=== PATIENT | female | born 1960 | race Caucasian/White ===

== ENCOUNTER → 2017-03-21 | Day surgery (SDC) | payer OTHER ==
[~2017-03-21] MED LIST: ADVIL200 M3 PO; HYDROCODONE-AP1 EAC6 PO
--- NOTE | 2017-03-21 13:01 | H ---
[address] [address] HISTORY AND PHYSICAL Name: JILLIAN BERNABE Room: [facility]#: [id number] Admission: 03/21/17 Attend Phys: Ashlie Go MD Discharge: Date of : 60 Report #: [id number] THIS REPORT FOR: //name// CC: FAM unknown Ashlie Go DATE OF SERVICE: 03/21/2017 ADMITTING DIAGNOSIS: Left inguinal hernia. HISTORY OF PRESENT ILLNESS: The patient is a 57-year-old white female who presented to my office after a work-related injury in mid January, resulted in left inguinal pain and swelling. She was evaluated at [facility] and found to have a left inguinal hernia after physical exam and CT scan confirmed it. She is now being referred for surgical treatment. ALLERGIES: She has no known medication allergies. She reports no drug allergies. She has no known medical history. PAST SURGICAL HISTORY: Includes a bunionectomy in 2010 and a section in 1997. SOCIAL HISTORY: She does not smoke or drink or use illegal drugs. PHYSICAL EXAMINATION: GENERAL: She is a moderately thin, well-developed female, in no acute distress. HEAD, EYES, EARS, NOSE AND THROAT: Unremarkable. NECK: Supple. LUNGS: Clear. HEART: Regular rate and rhythm without murmur. ABDOMEN: Soft. She has a healed Pfannenstiel incision and in the left inguinal crease on Valsalva or coughing, an inguinal hernia could be appreciated, which was tender, but reducible, not on the right. EXTREMITIES: No varicosities or swelling or pitting edema. IMPRESSION AND PLAN: Left inguinal hernia. I have outlined open inguinal hernia repair with placement of mesh. I have outlined the risks and benefits and answered her questions. She understands and wishes to proceed with surgical treatment. <ELECTRONICALLY SIGNED> By: Ashlie Go MD 03/21/17 1301 1558 [id number] Go MD /nt
[2017-03-21 13:38] LABS: HEMATOCRIT 42.1 % (37.0-47.0); HEMOGLOBIN 14.3 gm/dL (12.0-15.0); MCH 30.9 pg (26.0-34.0); MCHC 33.9 g/dL (28.0-37.0); MPV 8.7 fl. (7.2-11.1); RBC 4.62 mil/uL (4.20-5.00); RDW-CV 12.5 % (10.5-14.5); WBC 6.3 thou/uL (4.0-11.0)
--- NOTE | 2017-03-21 15:30 | EKG ---
[place] [address] ELECTROCARDIOGRAM REPORT Name: JILLIAN BERNABE Room: [facility]#: [id number] Admission: 03/21/17 Attend Phys: Ashlie Go MD Discharge: Date of : 60 Report #: [id number] THIS REPORT FOR: //name// [facility] Test Date: 2017-03-21 Test Time: 13:25:43 Pat Name: JILLIAN BERNABE Department: Room: Gender: F [employer]: : 1960 Requested By: Ashlie Go Order Number: [id number] Reading MD: Ilir Diaz Measurements Intervals [place] Rate: 63 P: 65 NC: 144 QRS: 5 QRSD: 94 T: 37 QT: 385 QTc: 395 Interpretive Statements Sinus rhythm No previous ECG available for comparison Electronically Signed On 03-21-2017 15:29:53 [employer] by Ilir Diaz [email or web address] <ELECTRONICALLY SIGNED> By: Ilir Diaz MD, [facility] 03/21/17 1529 1325 1325 Ilir Diaz MD, FACC /EPI
[2017-03-21 20:15] LABS: CALCIUM 9.1 mg/dL (8.5-10.1); CREATININE 0.9 mg/dL (0.6-1.3); POTASSIUM 3.4 mmol/L (3.5-5.1)
--- NOTE | 2017-03-27 13:40 | OP ---
[address] [address] OPERATIVE REPORT Name: JILLIAN BERNABE Room: [facility]#: [id number] Admission: 03/21/17 Attend Phys: Ashlie Go MD Discharge: Date of : 60 Report #: [id number] THIS REPORT FOR: //name// CC: FAM unknown Ashlie Go DATE OF SERVICE: 03/21/2017 PREOPERATIVE DIAGNOSIS: Left inguinal hernia. POSTOPERATIVE DIAGNOSIS: Left femoral hernia. OPERATIVE PROCEDURE: Repair of femoral hernia with large PerFix plugs mesh. ANESTHESIA: Laryngeal mask with 0.5% Marcaine infiltrated into the wound site. OPERATIVE PROCEDURE: The patient was placed under laryngeal mask anesthesia and the abdomen was carefully shaved, prepped and draped in our usual sterile fashion. A time-out was taken. Antibiotics were administered. We began by infiltrating from the anterior superior iliac spine to the lateral pole of the rectus muscle down to the pubic tubercle and transfers to the inguinal ligament. A transverse incision was placed below a previously placed transverse Pfannenstiel scar and pickups and cautery were used to dissect through the subcutaneous fat, Gilmar's fascia down into the inguinal fat pad and as I got into that space, I could see a protruding mass below the inguinal ligament and the external oblique fibers were identified. Those fibers were opened and peeled back, but no enlarging mass was there. The mass appeared to be passing through a natural opening consistent with a femoral hernia. The vessels and nerves were lateral to the site and the herniated fat was identified. I then placed a . I began palpating that site and was able to pull out some preperitoneal fat and then with mild massaging, pass it back into the femoral canal back into the abdominal cavity and sweep my fingers around. The area around was approximately 2.5 cm, so a large PerFix plug was used and trimmed down to a medium size and fed up into that femoral canal site. Three interrupted 0 Prolene sutures were anchored to the obturator fascia medial and inferiorly to the external oblique musculature and tendon above and then infiltrated with 0.5% Marcaine. The external oblique fibers were reapproximated with 0 plain gut suture as well as Gilmar's fascia. The subcutaneous tissues were then closed with 4-0 PDS sutures and the incision sealed with Dermabond. Estimated blood loss 1 mL. Sponge, instrument counts correct. The patient was extubated, returned to recovery in satisfactory condition. <ELECTRONICALLY SIGNED> By: Ashlie Go MD 03/27/17 1340 1506 [id number] Go MD /nt
== END | disposition home or self-care (01) ==
LOC: M.SUR 12:53
PROVIDERS: Surgery
DX: K41.90 Unilateral femoral hernia, without obstruction or gangrene, not specified as recurrent (principal); Z98.890 Other specified postprocedural states